=== PATIENT | female | born 1945 | race Caucasian/White ===

== ENCOUNTER 2018-11-12 23:38 | Emergency (ER) | payer MEDICAID, OTHER | END 2018-11-13 04:00 | disposition home or self-care (01) | LOC: FTE 23:38 | DX: S09.90XA Unspecified injury of head, initial encounter (principal); I10 Essential (primary) hypertension; R51 Headache; W01.0XXA Fall on same level from slipping, tripping and stumbling without subsequent striking against object, initial encounter; Y92.9 Unspecified place or not applicable | CPT/HCPCS: 70450; 70480; 99284-25 ==